=== PATIENT | female | born 1990 | race Hispanic/Latino ===

== ENCOUNTER 2018-11-18 11:51 | Inpatient (IN) | payer BC, OTHER ==
[~2018-11-18] VITALS: Ht 157.5 cm; Wt 61.2 kg
[2018-11-18] MEDS ORDERED: SODIUM CHLORIDE 0.9% 1000ML 1,000 ML IV STA (12:11)
[2018-11-18 13:13] LABS: CLARITY,URINE SL CLOUDY (CLEAR); COLOR,URINE YELLOW (YELLOW); KETONES,URINE 1+ (NEGATIVE); LEUKOCYTE ESTERASE ,URINE NEGATIVE (NEGATIVE); NITRITE,URINE NEGATIVE (NEGATIVE); PROTEIN,URINE DIPSTICK TRACE (NEGATIVE)
[2018-11-18 13:14] LABS: BILIRUBIN,URINE NEGATIVE (NEGATIVE); URINE UROBILINOGEN 0.2 mg/dL (0.2 - 1)
[2018-11-18 13:32] LABS: BACTERIA,URINE MODERATE /HPF
[2018-11-18] MEDS ORDERED: PIPER-TAZ 3.375 GM 50 ML IV STA (16:22)
[2018-11-18 16:26] LABS: BASOPHILS % 0.1 % (0.0-1.0); EOSINOPHILS % 0.1 % (0.0-6.0); HEMATOCRIT 41.4 % (34.2-44.1); HEMOGLOBIN 13.9 g/dL (12.0-16.0); LYMPHOCYTES # (AUTO) 1.3 (1.0-3.2); MEAN CORPUSCULAR HEMOGLOBIN 30.6 pg (28-32); MEAN CORPUSCULAR HGB CONC 33.6 g/dL (31-35); MEAN CORPUSCULAR VOLUME 91.2 fL (81-99); MONOCYTES # (AUTO) 1.1 (0.2-0.8); MONOCYTES % 7.1 % (4.4-11.3); NEUTROPHILS # (AUTO) 13.2 (2.1-6.9); NEUTROPHILS % 84.3 % (38.7-80.0); PLATELET COUNT 230 x10e3/uL (140-360); RED BLOOD COUNT 4.54 x10e6/uL (3.6-5.1); RED CELL DISTRIBUTION WIDTH 12.7 % (11.7-14.4)
[2018-11-18] MEDS ORDERED: SODIUM CHLORIDE 0.9% 1000ML 1,000 ML IV SCH (16:30)
[2018-11-18] MEDS ORDERED: HYDROCODONE/APAP 5MG-325MG TAB PO ONE ×2 (16:30)
[2018-11-18] MEDS ORDERED: HYDROCODONE/APAP 10MG-325MG TAB PO ONE (16:30)
[2018-11-18 16:46] LABS: ALANINE AMINOTRANSFERASE 12 IU/L (0-55); ALBUMIN 3.9 g/dL (3.5-5.0); ALBUMIN/GLOBULIN RATIO 0.9 (0.8-2.0); ALKALINE PHOSPHATASE 82 IU/L (40-150); AMYLASE 76 U/L (25-125); ANION GAP 13.7 mmol/L (8-16); BLOOD UREA NITROGEN 5 mg/dL (7-26); BUN/CREATININE RATIO 7 (6-25); CALCIUM 10.2 mg/dL (8.4-10.2); CARBON DIOXIDE 26 mmol/L (22-29); CHLORIDE 100 mmol/L (98-107); CREATININE, SERUM 0.69 mg/dL (0.57-1.11); EST GLOMERULAR FILTRATION RATE > 60 ML/MIN (60-); GLUCOSE 98 mg/dL (74-118); LIPASE 69 U/L (8-78); POTASSIUM 3.7 mmol/L (3.5-5.1); SODIUM 136 mmol/L (136-145)
--- NOTE | 2018-11-18 17:56 | Diagnostic Imaging Report ---
Exam: Abdomen and pelvis CT with contrast Indication: Right lower quadrant abdominal pain Comparison: TECHNIQUE: Spiral CT images of the abdomen and pelvis were performed from the lung bases to the lesser trochanters after the intravenous administration of 150 cc of Omnipaque 300 and the oral administration of Redicat. Coronal and sagittal reformatted images were obtained. DISCUSSION: ABDOMEN/PELVIS: LOWER THORAX:Unremarkable. HEPATOBILIARY: Prominent Simin's lobe. No focal hepatic lesions. No intra or extrahepatic biliary ductal dilation. GALLBLADDER: No radio-opaque stones or sludge. No wall thickening. SPLEEN: No splenomegaly. PANCREAS: No focal masses or ductal dilatation. ADRENALS: No adrenal nodules. KIDNEYS/URETERS: No hydronephrosis, stones, or solid mass lesions. PELVIC ORGANS/BLADDER: The bladder is normal. PERITONEUM/RETROPERITONEUM: Trace pelvic free fluid which is likely physiologic. LYMPH NODES: No intra-abdominal, retroperitoneal, pelvic or inguinal lymphadenopathy. VESSELS: The celiac trunk,superior and inferior mesenteric and bilateral renal arteries are patent The portal, superior mesenteric and splenic veins are patent. GI TRACT: No distention or wall thickening. Normal appendix (series 2, image 63). BONES AND SOFT TISSUE: Thickening and adjacent soft tissue swelling involving the right lower quadrant abdominal musculature (series 2, image 52). Soft tissue stranding begins at the level of the iliac wing and extends into the pelvis. No avulsion fractures identified. IMPRESSION: Right lower quadrant anterior abdominal wall muscular thickening and overlying fat stranding may represent sequela of muscular strain. No intra-abdominal abnormalities. Signed by: Giovanni Gutierrez MD on 11/18/2018 5:52 PM
[2018-11-18] MEDS ORDERED: MORPHINE SULFATE 2 MG/ML SYR 1ML IV PRN (20:00)
[2018-11-18] MEDS ORDERED: IBUPROFEN 600 MG TAB PO ONE (20:32)
[2018-11-18] MEDS: VANCOMYCIN 1GM/NS 250 ML 250 ML IV SCH (20:34)
--- NOTE | 2018-11-18 20:34 | NUR ---
CAROLINA CLOTH WASHER OPERATOR IN TRIAGE SPEAKING WITH PT.
[2018-11-18] MEDS: SODIUM CHLORIDE 0.9% 1000ML 1,000 ML IV SCH (21:55)
--- OUTSIDE RECORDS SUMMARY | 2018-11-18 22:03 | XMS REPORT ---
Author [facility] Address Unknown Phone Unavailable Care Team Providers Care Electrical Engineering Designer Name Role Phone XIAO Eugenia CANDACE Unavailable Unavailable Problems This patient has no known problems. Allergies, Adverse Reactions, Alerts This patient has no known allergies or adverse reactions. Medications This patient has no known medications. Results Test Description Test Time Test Comments Text Results Atomic Results Result Comments CT ABDOMEN/PELVIS W 2018-11-18 17:41:00 [facility] [address], [place] [address] Patient Name: THIAGO ROUSSEAU MR #: [id number] : 1990 Age/Sex: 28/F Req #: [id number] Adm Physician: Ordered by: CAROLINA CABA LEATHER GOODS ASSEMBLER Report #: [id number] Location: ER Room/Bed: Procedure: [id number] CT/CT ABDOMEN/PELVIS W Exam Date: 11/18/18 Exam Time: 1720 REPORT STATUS: Signed Exam: Abdomen and pelvis CT with contrast Indication: Right lower quadrant abdominal pain Comparison: TECHNIQUE: Spiral CT images of the abdomen and pelvis were performed from the lung bases to the lesser trochanters after the intravenous administration of 150 cc of Omnipaque 300 and the oral administration of Redicat. Coronal and sagittal reformatted images were obtained. DISCUSSION: ABDOMEN/PELVIS: LOWER TH ORAX:Unremarkable. HEPATOBILIARY: Prominent Simin's lobe. No focal hepatic lesions. No intra or extrahepatic biliary ductal dilation. GALLBLADDER: No radio-opaque stones or sludge. No wall thickening. SPLEEN: No splenomegaly. PANCREAS: No focal masses or ductal dilatation. ADRENALS: No adrenal nodules. KIDNEYS/URETERS: No hydronephrosis, stones, or solid mass lesions. PELVIC ORGANS/BLADDER: The bladder is normal. PERITONEUM/RETROPERITONEUM: Trace pelvic free fluid which is likely physiologic. LYMPH NODES: No intra-abdominal, retroperitoneal, pelvic or inguinal lymphadenopathy. VESSELS: The celiac trunk,superior and inferior mesenteric and bilateral renal arteries are patent The portal, superior mesenteric and splenic veins are patent. GI TRACT: No distention or wall thickening. Normal appendix (series 2, image 63). BONES AND SOFT TISSUE: Thickening and adjacent soft tissue swelling involving the right lower quadran t abdominal musculature (series 2, image 52). Soft tissue stranding begins at the level of the iliac wing and extends into the pelvis. No avulsion fractures identified. IMPRESSION: Right lower quadrant anterior abdominal wall muscular thickening and overlying fat stranding may represent sequela of muscular strain. No intra-abdominal abnormalities. Signed by: Brandee Rivas MD on 11/18/2018 5:52 PM Dictated By: BRANDEE RIVAS MD 51 Transcribed By: JULIETTE on 11/18/181751 COPY TO: CAROLINA CABA LEATHER GOODS ASSEMBLER
[2018-11-18] MEDS: ONDANSETRON HCL INJ 2MG/ML 2ML 2 MG/ML VIAL IV PRN (22:06)
[2018-11-18] MEDS: MORPHINE SULFATE INJ 4 MG/ML INJ 1ML IV PRN (22:08)
[2018-11-18] MEDS ORDERED: ACETAMINOPHEN 1000 MG/100 ML IV STA (22:30)
[2018-11-18] MEDS ORDERED: ACETAMINOPHEN 1000 MG/100 ML IV PRN (23:15)
[2018-11-18 23:20] VITALS: BP 110/75
--- NOTE | 2018-11-18 23:20 | NUR ---
patient is a new admit that arrived wheelchair. patient has been assisted into the bed. bed is in the lowest position and call ferro is within reach. will continue to monitor patient.
[2018-11-19] VITALS: BP 110/75
--- NOTE | 2018-11-19 | NUR ---
patient's IV has infiltrated. a new 20gauge IV has been started on patients left forearm. tolerated procedure well. IV is patent and gave good blood return.
--- NOTE | 2018-11-19 00:58 | History and Physical ---
HISTORY: A 28-year-old female comes in with right lower quadrant pain. HISTORY OF PRESENTING ILLNESS: Ms. Min is a 28-year-old female with no prior medical history, was in usual state of health until the patient noticed redness in the right lower extremity and the patient also had swelling and erythema. She also has a history of shaving the area. The patient was brought to the emergency room with possible appendicitis and the patient was found to have cellulitis and will be admitted for the same. PAST MEDICAL HISTORY: Noncontributory. Otherwise, no medical history at all. MEDICATIONS: She does not take any medicines. REVIEW OF SYSTEMS: Negative for chest pain or shortness of breath. No nausea, vomiting, or diarrhea. No constipation. Positive for pain. Positive fever and also positive for chills. PHYSICAL EXAMINATION: GENERAL: The patient is alert and oriented x3. VITAL SIGNS: Temperature is 100.8, pulse is 126, respirations 16, blood pressure is 143/102. HEENT: Normocephalic, atraumatic. Pupils reactive to light and accommodation. CVS: S1, S2. Tachycardic. ABDOMEN: Tender in the right lower quadrant. Positive for erythema. EXTREMITIES: No clubbing, no cyanosis, no edema. IMAGING STUDIES: Abdominal CT and pelvis CT shows right lower quadrant anterior abdominal wall thickening, overlying fat stranding may be medical center representative for muscle strain. No other abnormality seen. LABORATORY DATA: The patient's laboratory values, elevated white count of 15.69 with neutrophil count. ASSESSMENT: Cellulitis of the right lower abdomen. PLAN: Continue the patient on Zosyn and put the patient on some vancomycin too. Follow through with troughs and peaks and we will continue to monitoring the patient, IV fluid for tachycardia and also will reassess her labs in the morning. Further recommendation and clinical course, possible ID consult will also be done for leukocytosis and cellulitis of the lower abdominal wall. MD FRANCISCO JAVIER Hughes/KATHYL /[id number]
[2018-11-19 04:54] VITALS: BP 104/62
[2018-11-19 05:23] LABS: BASOPHILS % 0.2 % (0.0-1.0); EOSINOPHILS # (AUTO) 0.1 (0.0-0.4); EOSINOPHILS % 0.4 % (0.0-6.0); HEMATOCRIT 34.3 % (34.2-44.1); HEMOGLOBIN 11.4 g/dL (12.0-16.0); LYMPHOCYTES % 5.6 % (18.0-39.1); MEAN CORPUSCULAR HEMOGLOBIN 30.6 pg (28-32); MEAN CORPUSCULAR HGB CONC 33.2 g/dL (31-35); MONOCYTES # (AUTO) 1.6 (0.2-0.8); NEUTROPHILS # (AUTO) 15.2 (2.1-6.9); NEUTROPHILS % 83.5 % (38.7-80.0); PLATELET COUNT 185 x10e3/uL (140-360); RED BLOOD COUNT 3.73 x10e6/uL (3.6-5.1); RED CELL DISTRIBUTION WIDTH 12.8 % (11.7-14.4)
[2018-11-19 05:46] LABS: ALANINE AMINOTRANSFERASE 10 IU/L (0-55); ALBUMIN 2.7 g/dL (3.5-5.0); ALBUMIN/GLOBULIN RATIO 0.9 (0.8-2.0); ALKALINE PHOSPHATASE 69 IU/L (40-150); BLOOD UREA NITROGEN < 5 mg/dL (7-26); CALCIUM 8.5 mg/dL (8.4-10.2); CARBON DIOXIDE 24 mmol/L (22-29); CHLORIDE 108 mmol/L (98-107); CREATININE, SERUM 0.62 mg/dL (0.57-1.11); EST GLOMERULAR FILTRATION RATE > 60 ML/MIN (60-); GLUCOSE 121 mg/dL (74-118); SODIUM 136 mmol/L (136-145)
[2018-11-19 05:50] LABS: BUN/CREATININE RATIO 8 (6-25)
[2018-11-19] MEDS ORDERED: POTASSIUM CHLORIDE 20 MEQ TAB CR PO STA (05:54)
--- NOTE | 2018-11-19 05:57 | NUR ---
admitting physician in building rounding patient. physician has placed new orders.
--- NOTE | 2018-11-19 06:49 | Progress Note ---
DATE: SUBJECTIVE: A 28-year-old female, comes with cellulitis of the left lower quadrant of the abdomen. Currently, the patient is afebrile. The patient's fever has subsided. The patient was tachycardic on arrival to the ER. Currently, heart rate is about 85. No chest pain. No shortness of breath. Tenderness in the right lower quadrant is still present. The patient is able to ambulate. No guarding present. MEDICATIONS: Currently, the patient is on morphine sulfate 2 mg q.6 hours, sodium chloride at 125 mL, vancomycin and acetaminophen as needed. OBJECTIVE: VITAL SIGNS: Temperature is 97.0, T-max was 99.6 at 2200, blood pressure is 104/62, and pulse oxymetry of 99%, heart rate is coming down to 88. The patient is on IV fluids. HEENT: Normocephalic, atraumatic. Pupils are reactive to light and accommodation. CVS: S1 and S2 normal. Regular rate and rhythm. ABDOMEN: Nontender, nondistended. Erythema and superficial tenderness present in the right lower quadrant. There is no abscess collection. No induration. Positive for warmth. EXTREMITIES: No clubbing, no cyanosis, and no edema. LABORATORY VALUES: From yesterday 15,000, today's white count is 18,000; neutrophil count is 83,000. Chemistries show sodium 136, potassium 3.0, BUN less than 5, creatinine is above 60, glucose is 121. The rest of the numbers are good and normal. MICROBIOLOGY: Blood culture is pending. Urine culture is pending. ASSESSMENT: Cellulitis of the left lower abdomen. We will continue the patient on vancomycin and continue monitoring the cellulitis. The patient is also on morphine for pain control and also Tylenol IV for fever control. Further recommendation per clinical course. The patient's progression will be noted and if there is progression, she can return to p.o. antibiotics and can be discharged home. For now, we will keep her in-house and monitor her progress. MD FRANCISCO JAVIER Hughes/KATHYL /[id number]
--- NOTE | 2018-11-19 07:06 | NUR ---
Report given to day nurse. patient is resting comfortably in the bed. bed is in lowest position and call ferro is within reach.
[2018-11-19 07:45] VITALS: BP 107/64
[2018-11-19] MEDS: SODIUM CHLORIDE 0.9% 1000ML 1,000 ML IV SCH ×3 (07:57→20:40)
[2018-11-19 08:03] LABS: BAND NEUTROPHILS % (MANUAL) 3 %; EOSINOPHILS % (MANUAL) 1 % (0-7); LYMPHOCYTES % (MANUAL) 5 % (19-48); MONOCYTES % (MANUAL) 6 % (3.4-9.0); NEUTROPHILS % (MANUAL) 85 % (40-74); PLATELET ESTIMATE ADEQUATE; PLATELET MORPHOLOGY COMMENT NORMAL; RBC MORPHOLOGY COMMENT NORMAL
[2018-11-19] MEDS: MORPHINE SULFATE INJ 4 MG/ML INJ 1ML IV PRN ×3 (08:15→21:09)
[2018-11-19] MEDS: VANCOMYCIN 1GM/NS 250 ML 250 ML IV SCH ×2 (08:33→20:40)
[2018-11-19] MEDS: ONDANSETRON HCL INJ 2MG/ML 2ML 2 MG/ML VIAL IV PRN ×3 (08:34→21:15)
[2018-11-19 11:19] VITALS: BP 117/74
--- NOTE | 2018-11-19 13:36 | NUR ---
Nurse notified Dr. Walker in regards to pt's HR of 121. No new orders given at this time.
--- NOTE | 2018-11-19 13:55 | NUR ---
WOUND CARE CONSULTATION - INITIAL EVALUATION Patient admitted from home to ER for right groin redness to right groin area & fever. DX: Cellulitis of right lower abdomen. Patient on IV ABX- Vancomycin. WBC18.15 HGB11.4 HCT34.3 NEUT%83.5 YPX085 ALB2.7 Wound Care Consulted for evaluation of skin area with cellulitis to right lower abdomen/ Pannus. PUP SCREEN: Artur Score = 21 Regular [facility] [employer] [facility]. Self Care. PATIENT VISIT: Patient visited S/P shower - Ambulating OOB at time of visit. Family member at bedside Redness noted to right lower abdominal pannus consistent with cellulitis. Patient states redness originated from hair follicle which she was able to point out. Area appears indurated. 0.5x05. Consistent redness throughout entire affected area. No open skin identified. IMPRESSION: Findings Consistent with Cellulitis of Right Abdominal Pannus without ulceration.- Healing on Current IV ABX RECOMMENDATION: Continue Routine Hygiene/ Baths with mild soap and water. Avoid Lotions and Creams until infection resolves. Thank you for consulting with Wound Care. Addendum: 11/19/18 at 1407 by Julián Márquez RN Amended: Links added.
--- NOTE | 2018-11-19 14:55 | NUR ---
Visit made by the Spiritual Care Department Pastoral Visitor, Maryanne Acevedo. PV provided pastoral presence, hospitality, prayer, and supportive listening. Pastoral Visitor informed pt/family of the scope of Orthopaedic Technologist Services and availability. BRENT BRICE Ceramic Worker Spiritual Care Department O: [phone] Pager: [phone] ([phone] number calling from)
[2018-11-19 15:26] VITALS: BP 124/79
--- NOTE | 2018-11-19 17:50 | NUR ---
Pt A&O x3, able to state needs to staff. L AC 18g IV, patent NS at 125ml/hr. No redness or swelling to IV insertion site. C/o pain to R side, Morphine administered per order. Redness noted to R ABD, marked with marker to monitor growth. Growth has decreased since last night, pt seen by wound care nurse. Continuing ABT therapy. Pt able to ambulate by self. HR tachycardic, rate within 120's. Physician aware of HR. Resp WNL. Bed locked and lowered at this time for safety.
--- NOTE | 2018-11-19 18:58 | NUR ---
Received report from previous nurse. Call light within reach. Family at bedside
[2018-11-19 20:00] VITALS: BP 119/71
[2018-11-20] VITALS (8 sets, daily range): BP systolic 114–153; BP diastolic 69–88
[2018-11-20 05:56] LABS: BASOPHILS % 0.2 % (0.0-1.0); EOSINOPHILS # (AUTO) 0.1 (0.0-0.4); EOSINOPHILS % 0.5 % (0.0-6.0); HEMATOCRIT 32.3 % (34.2-44.1); HEMOGLOBIN 10.8 g/dL (12.0-16.0); LYMPHOCYTES # (AUTO) 1.8 (1.0-3.2); LYMPHOCYTES % 9.7 % (18.0-39.1); MEAN CORPUSCULAR HEMOGLOBIN 30.7 pg (28-32); MEAN CORPUSCULAR HGB CONC 33.4 g/dL (31-35); MEAN CORPUSCULAR VOLUME 91.8 fL (81-99); MONOCYTES # (AUTO) 1.2 (0.2-0.8); MONOCYTES % 6.3 % (4.4-11.3); NEUTROPHILS # (AUTO) 15.1 (2.1-6.9); NEUTROPHILS % 82.2 % (38.7-80.0); PLATELET COUNT 197 x10e3/uL (140-360); RED BLOOD COUNT 3.52 x10e6/uL (3.6-5.1); RED CELL DISTRIBUTION WIDTH 12.8 % (11.7-14.4)
[2018-11-20 06:14] LABS: ANION GAP 11.7 mmol/L (8-16); BLOOD UREA NITROGEN < 5 mg/dL (7-26); CALCIUM 8.9 mg/dL (8.4-10.2); CARBON DIOXIDE 24 mmol/L (22-29); CHLORIDE 105 mmol/L (98-107); CREATININE, SERUM 0.63 mg/dL (0.57-1.11); EST GLOMERULAR FILTRATION RATE > 60 ML/MIN (60-); GLUCOSE 95 mg/dL (74-118); SODIUM 137 mmol/L (136-145)
[2018-11-20] MEDS ORDERED: BISACODYL 5 MG TAB EC PO ONE (06:15)
[2018-11-20 06:16] LABS: BUN/CREATININE RATIO 8 (6-25); POTASSIUM 3.7 mmol/L (3.5-5.1)
--- NOTE | 2018-11-20 07:23 | NUR ---
GAVE REPORT TO ONCOMING NURSE. CALL LIGHT WITHIN REACH. FAMILY AT BEDSIDE. PATIENT IN BED.
--- NOTE | 2018-11-20 07:28 | Progress Note ---
DATE: SUBJECTIVE: A 28-year-old female comes with right intraabdominal abscess. The patient continues to have some pain. The pain is not relieved by pain medications. The patient continues to have pain when she moves. Afebrile, tachycardic. OBJECTIVE: VITAL SIGNS: Temperature 99.5 was T-max, today is 98.8, pulse of 132, respirations of 17, blood pressure is 121/85, pulse oximetry of 99%. HEENT: Normocephalic, atraumatic. Pupils are reactive to light and accommodation. CVS: S1, S2 normal. ABDOMEN: Nontender, nondistended. On the right lower part of the abdomen, slight induration noted compared to yesterday. Fluid collection noted too and the cellulitis/abscess is more formed today. EXTREMITIES: No clubbing, no cyanosis, no edema. LABORATORY VALUES: The patient's white count is 18,000, hemoglobin of 10.3, hematocrit of 32.3. Chemistry shows sodium of 136, potassium is 3.0, from yesterday it is pending. ASSESSMENT: Right lower intraabdominal abscess. PLAN: 1. Consult ID secondary to white count being about the same. The patient was on Zosyn, we will restart Zosyn at this time 3.375 g. 2. Rule out any intraabdominal problems. 3. Also do ultrasound of the abdomen to see if there is any localizing abscess forming. 4. Further recommendation and clinical course, the patient can be switched to inpatient today. MD FRANCISCO JAVIER Hughes/JOHN /[id number]
[2018-11-20] MEDS: SODIUM CHLORIDE 0.9% 1000ML 1,000 ML IV SCH ×2 (07:45→19:50)
[2018-11-20] MEDS: VANCOMYCIN 1GM/NS 250 ML 250 ML IV SCH ×2 (07:46→20:34)
--- NOTE | 2018-11-20 11:48 | Diagnostic Imaging Report ---
Examination: Limited abdominal ultrasound Clinical indication: Concern for abdominal wall abscess. Comparison examination: CT abdomen and pelvis with contrast 11/18/2018 Technique: Transverse and longitudinal sonographic images of the area of interest in the right lower quadrant of the abdomen were obtained with supplemental color Doppler images. Findings: Mild subcutaneous edema of the imaged portion of the right lower quadrant anterior abdominal wall. No discrete mass lesion or loculated fluid collection. Impression: No sonographic evidence of abdominal wall abscess. Signed by: Dr. Brandon Cerna M.D. on 11/20/2018 11:45 AM
[2018-11-20] MEDS: PIPER-TAZ 3.375 GM 50 ML IV SCH ×2 (11:52→16:34)
--- NOTE | 2018-11-20 19:12 | NUR ---
Report received and walking rounds complete. Pt resting in bed and in no apparent distress. Family at bedside. All safety measures ensured.
--- NOTE | 2018-11-20 23:22 | NUR ---
Report given to Danielle Esquivel RN for pt being transferred to room 209. Pt transferred via wheelchair.
[2018-11-21] MEDS ORDERED: SODIUM CHLORIDE 0.9% 250ML 250 ML ONE (00:01)
[2018-11-21] MEDS: PIPER-TAZ 3.375 GM 50 ML IV SCH ×5 (00:14→22:59)
--- NOTE | 2018-11-21 00:38 | Consultation ---
DATE OF CONSULTATION: REASON FOR CONSULTATION: Cellulitis of the abdominal wall. HISTORY OF PRESENT ILLNESS: This patient is very pleasant 28-year-old female, denies any past medical history, comes in with redness and swelling of her right abdominal wall, started the last 3 days ago. No injury. No trauma. The patient does shave her private area, I noticed. PAST SURGICAL HISTORY: The patient has no past medical history otherwise. PAST SURGICAL HISTORY: No past surgical history. Otherwise. MEDICATIONS: At home, none. ALLERGIES: NKA. SOCIAL HISTORY: There is no smoking, drug abuse, or alcohol abuse. FAMILY HISTORY: Negative. REVIEW OF SYSTEMS: GENERAL: At the present time, she says she is feeling slightly better. HEENT: There is no headache, visual changes, or hearing changes. GI: There is no nausea, no vomiting, no diarrhea. CARDIAC: There is no arrhythmia. NEURO: No seizure activity. SKIN: There is no other rash. All other symptoms are within normal limits. LABORATORY DATA: Reviewed. Chart reviewed. The patient is currently on vancomycin and Zosyn. I reviewed her chart. I reviewed her record. Cultures are negative so far. White count on admission was 15.69, white count 18.39 now; hemoglobin 10; hematocrit 32. Sodium 136, potassium 3.7, creatinine 0.69. Amylase and lipase are within normal limits. She had ultrasound, which was negative. She had a CAT scan on admission that showed cellulitis, perhaps myositis. IMPRESSION: Cellulitis on examination concerned. Her white count is going up, on broad-coverage antibiotics. We will observe the patient clinically. We will reassess and follow with you. Continue same antibiotic for the time being. Obtain vancomycin trough. Blood culture so far is negative. We will re-evaluate again in the morning. Recheck CBC. We will follow. MD KRISS Mazariegos/JOHN /[id number]
[2018-11-21 04:11] VITALS: BP 111/64
[2018-11-21 05:29] LABS: BASOPHILS % 0.3 % (0.0-1.0); EOSINOPHILS # (AUTO) 0.1 (0.0-0.4); HEMATOCRIT 33.9 % (34.2-44.1); HEMOGLOBIN 11.4 g/dL (12.0-16.0); LYMPHOCYTES # (AUTO) 1.8 (1.0-3.2); LYMPHOCYTES % 12.9 % (18.0-39.1); MEAN CORPUSCULAR HEMOGLOBIN 30.4 pg (28-32); MEAN CORPUSCULAR HGB CONC 33.6 g/dL (31-35); MEAN CORPUSCULAR VOLUME 90.4 fL (81-99); MONOCYTES # (AUTO) 0.7 (0.2-0.8); MONOCYTES % 5.2 % (4.4-11.3); NEUTROPHILS # (AUTO) 10.9 (2.1-6.9); NEUTROPHILS % 80.1 % (38.7-80.0); PLATELET COUNT 234 x10e3/uL (140-360); RED BLOOD COUNT 3.75 x10e6/uL (3.6-5.1); RED CELL DISTRIBUTION WIDTH 12.8 % (11.7-14.4)
[2018-11-21 05:49] LABS: ANION GAP 12.4 mmol/L (8-16); BLOOD UREA NITROGEN < 5 mg/dL (7-26); CALCIUM 9.3 mg/dL (8.4-10.2); CARBON DIOXIDE 24 mmol/L (22-29); CHLORIDE 106 mmol/L (98-107); CREATININE, SERUM 0.61 mg/dL (0.57-1.11); EST GLOMERULAR FILTRATION RATE > 60 ML/MIN (60-); GLUCOSE 94 mg/dL (74-118); POTASSIUM 3.4 mmol/L (3.5-5.1); SODIUM 139 mmol/L (136-145)
[2018-11-21 06:03] LABS: BUN/CREATININE RATIO 8 (6-25)
[2018-11-21] MEDS ORDERED: POTASSIUM CHLORIDE 20 MEQ TAB CR PO NR (07:03)
[2018-11-21 08:00] VITALS: BP 105/71
[2018-11-21 09:45] VITALS: BP 105/71
[2018-11-21] MEDS: VANCOMYCIN HCL 1.25 GM in SODIUM CHLORIDE 0.9% 250ML 250 ML IV SCH ×2 (09:46→19:53)
[2018-11-21] MEDS: SODIUM CHLORIDE 0.9% 1000ML 1,000 ML IV SCH (09:47)
--- NOTE | 2018-11-21 10:15 | Progress Note ---
DATE: SUBJECTIVE: A 28-year-old female comes in with cellulitis of the abdominal wall with induration into the abdominal wall and also probable myositis. The patient is currently feeling better. Tenderness has decreased. The patient has been afebrile for the last 48 hours. OBJECTIVE: VITAL SIGNS: Temperature is 98.1, pulse of 115, respirations of 19, blood pressure is 111/64, and pulse oximetry of 99%. HEENT: Normocephalic, atraumatic. Pupils are reactive to light and accommodation. CVS: S1 and S2. Tachycardic. ABDOMEN: Tender in the right lower quadrant. Positive for erythema and no abscess present. Induration has come down markedly. EXTREMITIES: No clubbing. No cyanosis. No edema. LABORATORY VALUES: The patient's white count is trending down to 13,000, hemoglobin of 11.4, hematocrit of 33.9, neutrophil count remains high at 80.1. Chemistries; sodium of 139, potassium 3.4, BUN less than 5, creatinine 0.61. Toxicology, vancomycin is 7.3. Urine cultures are negative. Blood culture, no growth in 48 hours. ASSESSMENT AND PLAN: 1. Cellulitis of the right lower quadrant of the abdominal wall. Ultrasound shows no abscess. Continue with Zosyn and vancomycin. 2. Tachycardia, probably related to the cellulitis. We will continue monitoring it. 3. Hypokalemia. We will replace potassium. Further recommendation per clinical course. The patient's disposition is possible discharge in 1 to 2 days depending on the progression of the cellulitis. MD FRANCISCO JAVIER Hughes/MODL /[id number]
[2018-11-21 12:00] VITALS: BP 108/74
[2018-11-21 16:00] VITALS: BP 115/76
--- NOTE | 2018-11-21 19:07 | NUR ---
walking rounds done with oncoming nurse. call light within reach.
[2018-11-21 20:16] VITALS: BP 111/82
[2018-11-22 00:10] VITALS: BP 112/76
[2018-11-22 04:10] VITALS: BP 113/75
[2018-11-22 05:53] LABS: BASOPHILS % 0.3 % (0.0-1.0); EOSINOPHILS # (AUTO) 0.2 (0.0-0.4); EOSINOPHILS % 2.2 % (0.0-6.0); HEMOGLOBIN 11.8 g/dL (12.0-16.0); LYMPHOCYTES # (AUTO) 2.2 (1.0-3.2); LYMPHOCYTES % 23.3 % (18.0-39.1); MEAN CORPUSCULAR HEMOGLOBIN 30.3 pg (28-32); MEAN CORPUSCULAR HGB CONC 33.7 g/dL (31-35); MONOCYTES # (AUTO) 0.7 (0.2-0.8); NEUTROPHILS # (AUTO) 6.1 (2.1-6.9); NEUTROPHILS % 66.3 % (38.7-80.0); PLATELET COUNT 288 x10e3/uL (140-360); RED BLOOD COUNT 3.89 x10e6/uL (3.6-5.1); RED CELL DISTRIBUTION WIDTH 12.9 % (11.7-14.4)
[2018-11-22 06:21] LABS: ANION GAP 10.5 mmol/L (8-16); BLOOD UREA NITROGEN 6 mg/dL (7-26); BUN/CREATININE RATIO 9 (6-25); CALCIUM 9.4 mg/dL (8.4-10.2); CARBON DIOXIDE 26 mmol/L (22-29); CHLORIDE 109 mmol/L (98-107); CREATININE, SERUM 0.66 mg/dL (0.57-1.11); EST GLOMERULAR FILTRATION RATE > 60 ML/MIN (60-); GLUCOSE 92 mg/dL (74-118); POTASSIUM 3.5 mmol/L (3.5-5.1); SODIUM 142 mmol/L (136-145)
--- NOTE | 2018-11-22 08:00 | Progress Note ---
DATE: SUBJECTIVE: The patient is a 28-year-old female with acute cellulitis of the right lower abdominal wall. The patient's ultrasound did not show any abscess formation and currently the patient is feeling better. Pain is reduced considerably. The patient is currently on vancomycin and Zosyn. No chest pains. No shortness of breath. The patient did have a bowel movement. PHYSICAL EXAMINATION: VITAL SIGNS: Temperature is 97.5, pulse of 102, blood pressure is 113/75, pulse oximetry of 100%. HEENT: Normocephalic, atraumatic. Pupils are reactive to light and accommodation. CVS: S1, S2. Normal rate and rhythm. ABDOMEN: Nontender, nondistended, right lower quadrant with erythema. No induration present at this time. Tenderness is markedly decreased. EXTREMITIES: No clubbing, no cyanosis, no edema. LABORATORY VALUES: White count is normalized to 9.22, hemoglobin of 11.8. Left shift is dissipated. Toxicology, vancomycin is 7.3 with increased vancomycin dose. Sodium 142, BUN of 6, creatinine 0.66. ASSESSMENT: Cellulitis of the right abdominal wall. The patient is currently on IV antibiotics, Zosyn and vancomycin. The patient's white count has dissipated, tachycardia has also dissipated. PLAN: Plan is to discharge in 1 to 2 days on p.o. medicine if okay with ID. Further recommendation and clinical course, the patient is eager to go home. MD FRANCISCO JAVIER Hughes/MODL /[id number]
[2018-11-22 08:03] VITALS: BP 113/76
[2018-11-22] MEDS: VANCOMYCIN HCL 1.25 GM in SODIUM CHLORIDE 0.9% 250ML 250 ML IV SCH (09:31)
[2018-11-22 11:18] VITALS: BP 114/83
[2018-11-22] MEDS ORDERED: DOXYCYCLINE HY100 MG PO (11:55)
[2018-11-22] MEDS ORDERED: CIPRO500 MG PO (11:56)
[2018-11-22] MEDS ORDERED: ONDANSETRON HCL 4 MG ORAL DISINTEGRATING TAB PO PRN (12:30)
--- NOTE | 2018-11-22 12:30 | NUR ---
The pt's iv was removed and discharge instructions were given to the pt. She was provided prescription and advised to follow up in 2 weeks with I D physician. The pt. was escorted to private car via w/c in stable condition.
== END 2018-11-22 12:45 | disposition home or self-care (01) | DRG 872 ==
LOC: ER 11:51 → ERHOLD 22:01 → IMCU 23:33 → OBSVTOIN 11-20 08:42 → MED/SURG2 11-20 23:29
PROVIDERS: ADMIT Family Medicine; ATTEND Family Medicine
DX: A41.9 Sepsis, unspecified organism (principal); L03.115 Cellulitis of right lower limb
CPT/HCPCS: 36415; 74177; 76705; 80048; 80053; 80202; 81001; 82150; 83605; 83690; 84702; 85025; 87040; 87086; 93005; 99284; G0378; J2270; J2405; J2543; J3370; J7030; J7050